=== PATIENT | male | born 1970 | race Caucasian/White ===

== ENCOUNTER 2020-02-29 02:07 | Outpatient (CLI) | payer OTHER, SELFPAY ==
[2020-02-29 20:39] LABS: SARS-CoV-2 RNA PCR Negative
== END 2020-02-29 02:08 | disposition home or self-care (01) ==
LOC: ANHCOVIDDT 02:07
PROVIDERS: PCP Family Medicine; Visit Provider Urology
DX: Z01.812 Encounter for preprocedural laboratory examination (principal); Z20.828 Contact with and (suspected) exposure to other viral communicable diseases
CPT/HCPCS: 87635; C9803; U0003

== ENCOUNTER 2020-03-02 01:48 | Day surgery (SDC) | payer OTHER, SELFPAY ==
[2020-02-17 14:43] VITALS: BMI 28.4
[2020-03-02] MEDS: ACETAMINOPHEN 500 MG TABLET 1000 MG PO (10:28)
[2020-03-02 10:32] VITALS: BP 113/94; PULSE 60; RESP 16; TEMP 36.3; O2SAT 99
[2020-03-02] MEDS: LACTATED RINGERS 1,000 ML 30 ML IV CONT (10:44)
--- NOTE | 2020-03-02 11:23 | WPDANESEPPF ---
Anes - Initial Pre Proc Eval Procedure: Operation Date: 03/02/20 12:00 Proposed Procedures p CO2 Laser Penile and Scrotal Condyloma, Excision Scrotal Lesion - Natasha Hill MD Date/Time: 03/02/20 11:23 Surgeon: Natasha Hill MD Pre Op Diagnosis: penile and scrotal condyloma, scrotal skin lesion Patient Data Age: 49 Gender: M Height: 1.78 m Weight: 87.6 kg Last Vital Signs Temp 36.3 C L 03/02/20 10:32 Pulse 60 03/02/20 10:32 Resp 16 03/02/20 10:32 BP 113/94 H 03/02/20 10:32 Pulse Ox 99 03/02/20 10:32 Allergies Allergy/AdvReac Type Severity Reaction Status Date / Time No Known Allergies Allergy Verified 03/02/20 10:23 Home Medications Medication Instructions Recorded Confirmed Type omeprazole 20 mg capsule,delayed See Rx Instructions .ROUTE 11/27/19 03/02/20 Rx release .COMPLEX #30 cap valacyclovir 500 mg PO DAILY 02/17/20 03/02/20 History testosterone cypionate 200 mg/mL 200 mg IM MONTHLY 02/18/20 03/02/20 History intramuscular oil Patient hx anesthesia problems: none Family hx anesthesia problems: none PMFSH Past Medical History Medical History (Updated 03/02/20 @ 11:26 by Rom Palomino MD) Chronic GERD Overweight (BMI 25.0-29.9) Family History Family History Father Diabetes mellitus Social History Social History Smoking status: Never smoker Second hand tobacco smoke exposure: No Alcohol intake: current Drinks per week: 2 Substance use: never Substance use type: does not use Living arrangements: with family Gender identity (if verbalized by the patient): Male Spiritual care concerns: No Agree to blood products: Yes Anes - Eval Final PreProcedure Day of Procedure 03/02/20 11:23 Patient weight: overweight Heart: regular rate and rhythm Lungs: clear to auscultation and normal air movement Airway: Mallampati scale class II Neurological: alert and oriented Last oral intake: >/= 8 hours ASA classification: II Emergent: no Anesthetic plan: proceed Anesthesia type and monitoring: general GIVS and LMA Informed Consent: The patient's anesthetic plan and its attendant risks and benefits were discussed with the patient/family/POA. Questions were solicited and answers provided to the satisfaction of the patient/family/POA.
--- NOTE | 2020-03-02 12:17 | WPDHPUPDATE1 ---
History and Physical Update Update Date/Time: 03/02/20 12:17 History and Physical has been reviewed, including an updated exam of the patient. There are NO changes in the patient's condition. Risks, benefits, and alternatives have been discussed and questions answered. Patient agrees to proceed with procedure.
[2020-03-02] MEDS: ceFAZolin 2 GM/D5W 50 ML 2 GM/50 ML BAG IVPB (12:20)
[2020-03-02] MEDS: BUPIVACAINE HCL 0.5% PF 30 ML VIAL INFILTRATE (12:37)
[2020-03-02] MEDS: NEOMYCIN/POLYMYXIN/BACITR/HC OINT 15 GM TUBE 1 APPLIC TOPICAL (12:43)
--- NOTE | 2020-03-02 12:50 | SUR.OPER ---
LASER SAFETY PRECAUTIONS INITIATED
--- NOTE | 2020-03-02 13:03 | PM.PROC ---
Procedure Note - Detailed Date of procedure: 03/02/20 Pre-op diagnosis: penile and scrotal condyloma, scrotal skin lesion Post-op diagnosis: same Procedure performed: -excision of scrotal and penile lesions -CO2 laser to genital condyloma Description of procedure: Informed consent was obtained. Patient taken the operating room. He was given a mac anesthetic. He was given injection of 0.5% Marcaine without epinephrine to affected areas. The largest penile lesion as well as collection of scrotal lesions were excised sharply. We cauterized the base with the CO2 laser. The 2 largest areas were then reapproximated on the scrotum with 3 O chromic in on the penis with 4 0 chromic interrupted sutures. Additional lesions ranging from 1 to 3 mm in size on the penis and suprapubic area were then destroyed using the CO2 laser. Using ascetic acid reinspected and did not note any residual lesions. The patient tolerated procedure well was taken to the recovery room in stable condition Anesthesia: MAC Surgeon: Natasha Hill MD Estimated blood loss (mL): 2 Drains: No Packing: No Pathology: yes Complications: No immediate complications Condition: stable Disposition: PACU
[2020-03-02 13:11] VITALS: BP 105/67; PULSE 51; RESP 14; O2SAT 95
[2020-03-02 13:35] VITALS: BP 123/85; PULSE 48; RESP 14; O2SAT 96
[2020-03-02 14:00] VITALS: BP 122/89; PULSE 43; RESP 14
== END 2020-03-02 14:04 | disposition home or self-care (01) ==
PROVIDERS: PCP Family Medicine; Visit Provider Urology
PROC: (CPT 17110; principal; 2020-03-02 12:00)
DX: A63.0 Anogenital (venereal) warts (principal); N50.89 Other specified disorders of the male genital organs; K21.9 Gastro-esophageal reflux disease without esophagitis; E66.3 Overweight; Z68.27 Body mass index [BMI] 27.0-27.9, adult; Z79.899 Other long term (current) drug therapy
CPT/HCPCS: 17110; 54065; 88305; A9270; J0690; J2250; J2704; J3010; J7120

== ENCOUNTER 2020-07-11 15:30 | Outpatient (RCR) | payer OTHER, SELFPAY ==
[2020-06-16 08:06] VITALS: BP_SYST 140
--- NOTE | 2020-06-16 09:03 | PTOPEVAL ---
PHYSICAL THERAPY EVALUATION AND PLAN OF CARE 06-16-20 Thank you for referring Royce Ramos to [facility], with the diagnosis of L shoulder pain/ tendonitis. Mr. Ramos is scheduled to be seen for therapy? 1-2 x/week for 5 weeks. Please review, sign, date and return this plan of care KASHIF. I agree with and certify that the following plan of care is medically necessary. Referring Physician Date Attending Provider: Nickolas Wilson PA-C *PT Outpatient Evaluation Document 06/16/20 08:06 NIC (Rec: 06/16/20 09:03 NIC [id number]) Source of Past Medical History Recalled from Previous Visit, Confirmed with Patient/Family Neurological History Hx Neurological Disorders No Significant History Cardiovascular History Hx Cardiac Disorders No Significant History Respiratory History Hx Respiratory Disorders No Significant History Gastrointestinal History Hx Gastroesophageal Reflux Disease Yes Genitourinary History Hx Genitourinary Disorders No Significant History Musculoskeletal History Hx Back Pain Yes Hematological History Hx Hematological Disorders No Significant History Endocrine History Hx Endocrine Disorders No Significant History HEENT History Hx HEENT Disorders No Significant History Integumentary History Hx Skin Disorders No Significant History Reproductive History Hx Reproductive Disorders No Significant History Psychosocial History Hx Psychiatric Disorders No Significant History Pain History History of Any Previous or Ongoing No Significant History Instance of Pain Anesthesia History Hx Anesthesia Reactions No Significant History Evaluation Information Problem Diagnosis L shoulder pain Onset May 2019 Subjective Information gradual increase in shoulder Query Text:As Reported By Patient/ pain, no injury or trauma to Family shoulder/UE; Diagnostic Tests X-Rays For This Problem No MRI For This Problem No Other Tests For This Problem No Previous Treatments Previous Treatments For This Problem NO PT for shoulder Prior Level of Function Activity Level (Last 3 Months) 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
--- NOTE | 2020-07-20 08:47 | PCPTNOTE ---
PHYSICAL THERAPY DISCHARGE 07-20-20 Attending Provider: JM GonzalesC Patient:Royce Ramos Date of :1970 Royce has received 5 PT sessions, from June 16 to July 11, for the diagnosis of L shoulder tendonitis. He called and canceled his scheduled reevaluation, due to having to work. On the phone, I discussed his PT with him. He states his shoulder is better and feels he does not need any additional therapy. And will continue to do his shoulder exercises. Discharge PT services. The goals were not addressed. Thank you for referring Mr. Ramos to [facility]. Please review, sign, date and return this discharge summary KASHIF. I have been updated about the patient's current status and I agree with discharge from the above service at this time. Referring Physician Date
== END 2020-07-20 12:51 | disposition home or self-care (01) ==
LOC: ANHPT 15:30
PROVIDERS: PCP Physician Assistant; Visit Provider Physician Assistant
DX: M67.912 Unspecified disorder of synovium and tendon, left shoulder (principal); M25.512 Pain in left shoulder
CPT/HCPCS: 97014; 97110; 97140; 97161; G0283